=== PATIENT | male | born 1990 | race American Indian/Alaskan Native ===

== ENCOUNTER 2021-09-11 12:32 | Outpatient (CLI) | payer OTHER ==
--- NOTE | 2021-09-11 14:40 | XRay Report ---
BILATERAL ANKLE 6 VIEW(S) INDICATION / CLINICAL INFORMATION: BILATERAL ANKLE PAIN COMPARISON: None available. FINDINGS: BONES / JOINT(S): No acute fracture or subluxation. Absent fifth metatarsal shafts bilaterally, possi nanda related to prior surgery or neuropathic changes.. No significant arthritis. Bilateral os peroneum . SOFT TISSUES: No significant abnormality. ADDITIONAL FINDINGS: None. Signer Name: Shaheen Leslie MD Signed: 09/11/2021 2:35 PM Workstation Name: [id number]
== END 2021-09-11 12:33 | disposition home or self-care (01) ==
LOC: XRAY 12:32
PROVIDERS: ATTEND Internal Medicine
DX: M25.572 Pain in left ankle and joints of left foot (principal); M25.571 Pain in right ankle and joints of right foot